=== PATIENT | female | born 1965 | race Two or more races ===

== ENCOUNTER 2020-12-21 17:01 | Emergency (ER) | payer MEDICAID ==
--- NOTE | 2020-12-21 17:21 | EDM.PDOC ---
ED HPI GENERAL MEDICAL PROBLEM - General Stated Complaint: POSSIBLE UTI Time Seen by Provider: 12/21/20 17:03 Source of Information: Reports: Patient History Limitations: Reports: No Limitations - History of Present Illness INITIAL COMMENTS - FREE TEXT/NARRATIVE: History of present illness: Patient is a 55-year-old female who presents to the emergency room with complaints of dysuria and frequency over the past 2 to 3 days. Patient states she had been taking Azo at the onset of her symptoms as she assumed she had a urinary tract infection. She stopped taking the Azo today so she can give us a urine sample. She reports since stopping the Azo the dysuria is "terrible". Reports frequent UTIs. Patient denies any fever, chills, headache, change in vision, syncope or near syncope. Denies any chest pain, back pain, shortness of breath or cough. Denies any abdominal pain, nausea, vomiting, diarrhea, constipation or concerns for STDs or . Patient has been eating and drinking appropriately. Review of systems: As per history of present illness and below otherwise all systems reviewed and negative. Past medical history: As per history of present illness and as reviewed below otherwise noncontributory. Surgical history: As per history of present illness and as reviewed below otherwise noncontributory. Social history: See social history for further information Family history: As per history of present illness and as reviewed below otherwise noncontributory. Physical exam: General: Well developed and well nourished. Alert and orientated x 3. Nontoxic in appearance and in no acute distress. Vital signs are stable and have been reviewed by me. Nursing notes were reviewed. HEENT: Atraumatic, normocephalic, pupils equal and reactive bilaterally, negative for conjunctival pallor or scleral icterus, mucous membranes moist, trachea midline. No drooling or trismus noted. No meningeal signs. No hot potato voice noted. Lungs: Clear to auscultation bilaterally. No wheezes, rales, or rhonchi. Chest nontender. Normal work of breathing, no accessory muscles used. Heart: S1S2, regular rate and rhythm without overt murmur, gallops, or rubs. No JVD. No peripheral edema Abdomen: Soft, nondistended, nontender. Normoactive bowel sounds. Negative for masses or costovertebral tenderness. Skin: Intact, warm, dry. No lesions or rashes noted. Hematologic: No petechiae or purpra. Mucosa appropriate color and normal nail bed color and refill. Extremities: Atraumatic, moves all extremities per self without difficulty or deficits, negative for cords or calf pain. Neurovascular unremarkable. Neuro: Awake, alert, oriented. Cranial nerves II through XII unremarkable. Cerebellum unremarkable. Motor and sensory unremarkable throughout. Exam nonfocal. Psychiatric: Mood and affect are appropriate. Normal thought process. Answering questions appropriately. Notes: *This patient was seen and evaluated during the 2019 SARS-CoV-2 novel coronavirus pandemic period. Community viral transmission is ongoing at time of this encounter and the emergency department is operating under pandemic response procedures. Patient has a significant UTI without abdominal pain, flank pain, n/v, or fever. I have talked with the patient about today's findings, in addition to providing specific details for plan of care. We discussed the need for close follow up. Reassessment at the time of disposition demonstrates that the patient is in no acute distress. The patient is stable for discharge, counseling was provided and we discussed in great detail signs and symptoms that would prompt them to return to the Emergency Department. Medication, follow up and supportive care measures were reviewed and discussed. Voices understanding and is agreeable to plan of care. Denies any further questions or concerns at this time. Diagnostics: UA/UC Therapeutics: Rocephin, Toradol, Pyridium Prescription: Pyridium, Cipro Impression: UTI Plan: 1. You have a significant bladder infection. Please take the antibiotic as directed. If your symptoms should worsen, new symptoms develop or any of the signs and symptoms we discussed should arise please return to the emergency room or call 911 (if needed). 2. You can alternate Tylenol and ibuprofen as needed for pain and fever management. 3. We encourage you to follow up with your primary care provider and/or recommended specialist in the next few days for re-evaluation and further care/management. Definitive disposition and diagnosis as appropriate pending reevaluation and review of above. Urination Pain Score (Numeric/FACES): 10 - Related Data Allergies Allergy/AdvReac Type Severity Reaction Status Date / Time acetaminophen [From Vicodin] Allergy Severe Tremors Verified 12/21/20 17:14 hydrocodone bitartrate Allergy Severe Tremors Verified 12/21/20 17:14 [From Vicodin] prochlorperazine edisylate Allergy Severe Tremors Verified 12/21/20 17:14 [From Compazine] prochlorperazine maleate Allergy Severe Tremors Verified 12/21/20 17:14 [From Compazine] Home Meds: Home Meds Albuterol Sulfate 2 inh INH ASDIRECTED PRN 07/19/14 [History] SUMAtriptan succinate [Sumatriptan Succinate] 1 injection INJECT ASDIRECTED PRN 07/19/14 [History] Ciprofloxacin HCl [Cipro] 500 mg PO BID 7 Days #14 tablet 12/21/20 [Rx] Phenazopyridine HCl [Pyridium] 200 mg PO TID 2 Days #12 tablet 12/21/20 [Rx] Past Medical History Respiratory History: Reports: Asthma Other Genitourinary History: left breast cyst removal on L; two c-sections; tubal ligation Musculoskeletal History: Reports: Neck Pain, Chronic ED ROS GENERAL - Review of Systems Review Of Systems: Comprehensive ROS is negative, except as noted in HPI. ED EXAM, RENAL/ - Physical Exam Exam: See Below (See dictation) Course - Vital Signs Last Recorded V/S: Last Vital Signs Temp 96.9 F 12/21/20 17:04 Pulse 75 12/21/20 17:04 Resp 18 12/21/20 17:04 BP 128/80 12/21/20 17:04 Pulse Ox 98 12/21/20 17:04 - Orders/Labs/Meds Orders: Active Orders 24 hr Category Date Time Status CULTURE URINE [RM] Stat Lab 12/21/20 17:14 Received Labs: Laboratory Tests 12/21/20 Range/Units 17:14 Urine Color YELLOW Urine Appearance SLT CLOUDY Urine pH 6.0 (5.0-8.0) Ur Specific [place] >= 1.030 (1.001-1.035) Urine Protein TRACE H (NEGATIVE) mg/dL Urine Glucose (UA) NEGATIVE (NEGATIVE) mg/dL Urine Ketones NEGATIVE (NEGATIVE) mg/dL Urine Occult Blood LARGE H (NEGATIVE) Urine Nitrite NEGATIVE (NEGATIVE) Urine Bilirubin NEGATIVE (NEGATIVE) Urine Urobilinogen 0.2 (<2.0) EU/dL Ur Leukocyte Esterase SMALL H (NEGATIVE) Urine RBC 25-30 (0-2/HPF) Urine WBC 180-230 (0-5/HPF) Ur Epithelial Cells FEW (NONE-FEW) Amorphous Sediment FEW (NEGATIVE) Urine Bacteria 1+ H (NEGATIVE) Urine Mucus FEW (NONE-MOD) Meds: Medications Discontinued Medications Generic Name Dose Route Start Last Admin Trade Name Kyrie PRN Reason Stop Dose Admin Ceftriaxone Sodium 1 gm 12/21/20 17:39 Rocephin IM 12/21/20 17:40 ONETIME ONE Ketorolac Tromethamine 60 mg 12/21/20 17:41 Toradol IM 12/21/20 17:42 ONETIME ONE Phenazopyridine HCl 200 mg 12/21/20 17:23 12/21/20 17:27 Pyridium PO 12/21/20 17:24 200 mg ONETIME ONE Administration Departure - Departure Time of Disposition: 17:50 Disposition: Home, Self-Care 01 Clinical Impression: UTI, Urinary tract infectious disease - Discharge Information Prescriptions: Ciprofloxacin HCl [Cipro] 500 mg PO BID 7 Days #14 tablet Phenazopyridine HCl [Pyridium] 200 mg PO TID 2 Days #12 tablet Instructions: Urinary Tract Infection, Adult Referrals: Susan Ayon MD [Primary Care Provider] - Additional Instructions: The following information is given to patients seen in the emergency department who are being discharged to home. This information is to outline your options for follow-up care. We provide all patients seen in our emergency department with a follow-up referral. The need for follow-up, as well as the timing and circumstances, are variable depending upon the specifics of your emergency department visit. If you don't have a primary care physician on staff, we will provide you with a referral. We always advise you to contact your personal physician following an emergency department visit to inform them of the circumstance of the visit and for follow-up with them and/or the need for any referrals to a consulting specialist. The emergency department will also refer you to a specialist when appropriate. This referral assures that you have the opportunity for follow-up care with a specialist. All of these measure are taken in an effort to provide you with optimal care, which includes your follow-up. Under all circumstances we always encourage you to contact your private physician who remains a resource for coordinating your care. When calling for follow-up care, please make the office aware that this follow-up is from your recent emergency room visit. If for any reason you are refused follow-up, please contact the [facility] Emergency Department at and asked to speak to the emergency department charge nurse. [facility] [address] [place] [address] [facility] [address] [place] [address] Thank you for choosing the [facility] emergency department in [place] for your medical needs today. It was a pleasure caring for you. Today you were seen in the emergency department for UTI. 1. You have a significant bladder infection. Please take the antibiotic as directed. If your symptoms should worsen, new symptoms develop or any of the signs and symptoms we discussed should arise please return to the emergency room or call 911 (if needed). 2. You can alternate Tylenol and ibuprofen as needed for pain and fever m anagement. 3. We encourage you to follow up with your primary care provider and/or recommended specialist in the next few days for re-evaluation and further care/management. Sepsis Event Note (ED) - Focused Exam Vital Signs: Vital Signs Temp Pulse Resp BP Pulse Ox 12/21/20 17:04 96.9 F 75 18 128/80 98 - My Orders Last 24 Hours: My Active Orders 12/21/20 17:14 CULTURE URINE [RM] Stat - Assessment/Plan Last 24 Hours: My Active Orders 12/21/20 17:14 CULTURE URINE [RM] Stat
[2020-12-21] MEDS ORDERED: Phenazopyridine 200 MG Tab PO ONE (17:23)
[2020-12-21] MEDS ORDERED: cefTRIAXone 1 GM Vial IM ONE (17:39)
[2020-12-21] MEDS ORDERED: Ketorolac 60 MG/2 ML SDV IM ONE (17:41)
== END 2020-12-21 18:42 | disposition home or self-care (01) ==
LOC: MW.ED 17:01
DX: N39.0 Urinary tract infection, site not specified (principal); J45.909 Unspecified asthma, uncomplicated; Z88.6 Allergy status to analgesic agent; Z88.5 Allergy status to narcotic agent; Z88.8 Allergy status to other drugs, medicaments and biological substances
CPT/HCPCS: 81001; 87086; 87088; 87186; 96372; 99283; A9270; J0696; J1885

== ENCOUNTER 2021-04-08 18:07 | Emergency (ER) | payer MEDICAID ==
[2021-04-08 19:10] LABS: BLOOD UREA NITROGEN,BUN 21 mg/dL (7.0-18.0); CARBON DIOXIDE,CO2 26.1 mmol/L (21.0-32.0); CHLORIDE,CL 104 mmol/L (98-107); GLUCOSE RANDOM 110 mg/dL (74-106); POTASSIUM,K 3.9 mmol/L (3.5-5.1); SODIUM,NA 140 mmol/L (136-145)
--- NOTE | 2021-04-08 19:57 | US ---
INDICATION: RIGHT LOWER EXT PAIN, INTERMITTENT PARASETHESIA TECHNIQUE: Ultrasound venous duplex right lower extremity. COMPARISON: None. FINDINGS: The right common femoral, superficial femoral, deep femoral, popliteal, posterior tibial, and greater saphenous veins are fully compressible with normal waveforms. IMPRESSION: Normal ultrasound of the right lower extremity veins. Dictated by: Star Vitale MD @ 04/08/2021 19:56:33 (Electronically Signed)
--- NOTE | 2021-04-08 20:14 | CT ---
INDICATION: Right leg pain. TECHNIQUE: Axial images. Sagittal and coronal reconstructions. COMPARISON: None. FINDINGS: Normal curvature and alignment of the lumbar spine. No lumbar spine fracture. There is mild multilevel disc degeneration as indicated by circumferential disc bulging with mild disc space narrowing and endplate degenerative spurring. There is mild to moderate multilevel facet arthrosis. A combination of disc bulge, and ligamentum flavum and facet hypertrophy at L4-5 results in at least mild spinal stenosis at this level. These changes also result in mild to moderate bilateral neural foraminal narrowing at this level, right worse than left. Eccentric degenerative changes on the left at L5-S1 result in moderate to severe neural foraminal stenosis at this level. IMPRESSION: 1. No acute bony abnormality involving the lumbar spine. 2. Lumbar spondylosis as described above, with at least mild spinal stenosis at L4-5, as well as the neural foraminal narrowing at L4-5, right greater than left, and left-sided neural foraminal stenosis at L5-S1. Dictated by Jeremiah Mensah MD @ 04/08/2021 8:12:15 PM Please note that all CT scans at this facility use dose modulation, iterative reconstruction, and/or weight-based dosing when appropriate to reduce radiation dose to as low as reasonably achievable. Dictated by: Jeremiah Mensah MD @ 04/08/2021 20:12:27 (Electronically Signed)
--- NOTE | 2021-04-08 20:17 | EDM.PDOC ---
ED HPI GENERAL MEDICAL PROBLEM - General Chief Complaint: Lower Extremity Injury/Pain Stated Complaint: RIGHT LEG NUMBNESS Time Seen by Provider: 04/08/21 18:32 Source of Information: Reports: Patient History Limitations: Reports: No Limitations - History of Present Illness INITIAL COMMENTS - FREE TEXT/NARRATIVE: HISTORY AND PHYSICAL: History of present illness: Patient is a 56-year-old female who presents to the emergency room with complaints of right lower extremity pain. She states last week she had drove [address] and quickly had to return 16 hours back. Shortly after she started to develop some pain to the right posterior thigh that occasionally radiated into the calf. She now has pain mostly in the right calf with intermittent tingling/numbness sensation. She has a history of PE and is concerned she has a blood clot. Patient denies any fever, chills, headache, change in vision, syncope or near syncope. Denies any chest pain, shortness of breath or cough. Denies any abdominal pain, nausea, vomiting, diarrhea, constipation or dysuria. Has not noted any blood in urine or stool. Patient has been eating and drinking appropriately. Denies any injury, trauma or falls. Review of systems: As per history of present illness and below otherwise all systems reviewed and negative. Past medical history: As per history of present illness and as reviewed below otherwise noncontributory. Surgical history: As per history of present illness and as reviewed below otherwise noncontributory. Social history: See social history for further information Family history: As per history of present illness and as reviewed below otherwise noncontributory. Physical exam: General: Well developed and well nourished. Alert and orientated x 3. Nontoxic in appearance and in no acute distress. Vital signs are stable and have been reviewed by me. Nursing notes were reviewed. HEENT: Atraumatic, normocephalic, pupils equal and reactive bilaterally, negative for conjunctival pallor or scleral icterus, mucous membranes moist, TMs normal bilaterally, throat clear, neck supple, nontender, trachea midline. No drooling or trismus noted. No meningeal signs. No hot potato voice noted. Lungs: Clear to auscultation bilaterally. No wheezes, rales, or rhonchi. Chest nontender. Normal work of breathing, no accessory muscles used. Heart: S1S2, regular rate and rhythm without overt murmur, gallops, or rubs. No JVD. No peripheral edema Abdomen: Soft, nondistended, nontender. Normoactive bowel sounds. Negative for masses or costovertebral tenderness. Pelvis: Stable nontender. Genitourinary/Rectal: Deferred. C-spine/Back: No pinpoint vertebral tenderness upon palpation. No crepitus, step-offs or obvious deformities. Patient is ambulatory into the emergency room without difficulty or deficit. Able to rock back on heels and walk on toes. Denies any urinary or fecal incontinence. Denies any numbness, tingling or saddle paresthesia. No concerns of serious infection, fracture or cord compression, or cauda equina syndrome. Deep tendon reflexes brisk bilaterally. Skin: Intact, warm, dry. No lesions or rashes noted. Hematologic: No petechiae or purpra. Mucosa appropriate color and normal nail bed color and refill. Extremities: Atraumatic, moves all extremities per self without difficulty or deficits, negative for cords or calf pain. Neurovascular unremarkable. Neuro: Awake, alert, oriented. Cranial nerves II through XII unremarkable. Cerebellum unremarkable. Motor and sensory unremarkable throughout. Exam nonfocal. Psychiatric: Mood and affect are appropriate. Normal thought process. Answering questions appropriately. Notes: *This patient was seen and evaluated during the 2019 SARS-CoV-2 novel coronavirus pandemic period. Community viral transmission is ongoing at time of this encounter and the emergency department is operating under pandemic response procedures. Patient's physical exam is within normal limits. The skin is intact and c omparable of left and right. She currently denies any back pain although states she did have some low back pain after the long car ride. C-spine/back exam is unremarkable. No neurological symptoms are noted. Strong pedal and pretibial pulses bilaterally. I will do some imaging per patient request.. Lab work is within normal limits. Ultrasound is unremarkable, no evidence of DVT. CT of the lumbar spine shows no acute bony abnormality involving the lumbar spine. Lumbar spondylosis as described above, with at least mild spinal stenosis at L4-5, as well as the neural foraminal narrowing at L4-5, right greater than left, and left-sided neural foraminal stenosis at L5-S1. I have talked with the patient about today's findings, in addition to providing specific details for plan of care. Reassessment at the time of disposition demonstrates that the patient is in no acute distress. The patient is stable for discharge, counseling was provided and we discussed in great detail signs and symptoms that would prompt them to return to the Emergency Department. Strict return precautions were reviewed and discussed. She is aware if symptoms persist after steroids that she should follow-up with primary care as she may require an MRI. Medication, follow up and supportive care measures were reviewed and discussed. Voices understanding and is agreeable to plan of care. Denies any further questions or concerns at this time. Diagnostics: CBC, CMP, INR, Ultrasound, CT lumbar spine Therapeutics: Flexeril Prescription: Diclofenac, Flexeril, Prednisone Impression: Sciatica Plan: 1. You were evaluated today on an emergent basis. Your lab work, ultrasound and CT are within normal limits. You do have some mild spinal stenosis noted on imaging. If your symptoms should worsen, new symptoms develop (peeing or pooping yourself) or any of the signs and symptoms we discussed should arise please return to the emergency room or call 911 (if needed). You may require an MRI if symptoms do not resolve as we discussed. 2. You can alternate Tylenol and ibuprofen as needed for pain and fever management. 3. We encourage you to follow up with your primary care provider and/or recommended specialist in the next few days for re-evaluation and further care/management. Definitive disposition and diagnosis as appropriate pending reevaluation and review of above. right leg Pain Score (Numeric/FACES): 4 - Related Data Allergies Allergy/AdvReac Type Severity Reaction Status Date / Time acetaminophen [From Vicodin] Allergy Severe Tremors Verified 04/08/21 18:26 hydrocodone bitartrate Allergy Severe Tremors Verified 04/08/21 18:26 [From Vicodin] prochlorperazine edisylate Allergy Severe Tremors Verified 04/08/21 18:26 [From Compazine] prochlorperazine maleate Allergy Severe Tremors Verified 04/08/21 18:26 [From Compazine] Home Meds: Home Meds Albuterol Sulfate 2 inh INH ASDIRECTED PRN 07/19/14 [History] Cyclobenzaprine [Flexeril] 10 mg PO TID PRN #21 tab 04/08/21 [Rx] Diclofenac Sodium [Voltaren] 75 mg PO BIDMEALS PRN #30 tab.cr 04/08/21 [Rx] predniSONE [Prednisone] 40 mg PO DAILY 5 Days #10 tablet 04/08/21 [Rx] Past Medical History HEENT History: Reports: None Cardiovascular History: Reports: None Respiratory History: Reports: Asthma Other Respiratory History: hx of PE Gastrointestinal History: Reports: None Genitourinary History: Reports: UTI, Recurrent Other Genitourinary History: left breast cyst removal on L; two c-sections; 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: Musculoskeletal History: Reports: Neck Pain, Chronic Neurological History: Reports: Migraines Psychiatric History: Reports: None Endocrine/Metabolic History: Reports: None Hematologic History: Reports: None Immunologic History: Reports: None Oncologic (Cancer) History: Reports: None Dermatologic History: Reports: None - Infectious Disease History Infectious Disease History: Reports: None - Past Surgical History Head Surgeries/Procedures: Reports: None Social & Family History - Family History Family Medical History: No Pertinent Family History - Tobacco Use Tobacco Use Status *Q: Never Tobacco User - Caffeine Use Caffeine Use: Reports: Coffee - Recreational Drug Use Recreational Drug Use: No Review of Systems - Review of Systems Review Of Systems: Comprehensive ROS is negative, except as noted in HPI. ED EXAM, GENERAL - Physical Exam Exam: See Below (See dictation) Course - Vital Signs Last Recorded V/S: Last Vital Signs Temp 97.6 F 04/08/21 18:21 Pulse 82 04/08/21 18:21 Resp 20 04/08/21 18:21 BP 144/78 H 04/08/21 18:21 Pulse Ox 96 04/08/21 18:21 - Orders/Labs/Meds Labs: Laboratory Tests 04/08/21 04/08/21 04/08/21 Range/Units 18:45 18:45 18:45 WBC 6.44 (4.0-11.0) K/uL RBC 3.99 L (4.30-5.90) M/uL Hgb 12.7 (12.0-16.0) g/dL Hct 38.2 (36.0-46.0) % MCV 95.7 (80.0-98.0) fL MCH 31.8 (27.0-32.0) pg MCHC 33.2 (31.0-37.0) g/dL RDW Std Deviation 45.3 (28.0-62.0) fl RDW Coeff of Alessia 13 (11.0-15.0) % Plt Count 263 (150-400) K/uL MPV 11.50 (7.40-12.00) fL Neut % (Auto) 54.8 (48.0-80.0) % Lymph % (Auto) 34.3 (16.0-40.0) % [place] % (Auto) 7.0 (0.0-15.0) % Eos % (Auto) 3.3 (0.0-7.0) % Baso % (Auto) 0.6 (0.0-1.5) % Neut # (Auto) 3.5 (1.4-5.7) K/uL Lymph # (Auto) 2.2 (0.6-2.4) K/uL [place] # (Auto) 0.5 (0.0-0.8) K/uL Eos # (Auto) 0.2 (0.0-0.7) K/uL Baso # (Auto) 0.0 (0.0-0.1) K/uL Nucleated RBC % 0.0 /100WBC Nucleated RBCs # 0 K/uL INR 0.97 Sodium 140 (136-145) mmol/L Potassium 3.9 (3.5-5.1) mmol/L Chloride 104 (98-107) mmol/L Carbon Dioxide 26.1 (21.0-32.0) mmol/L BUN 21 H (7.0-18.0) mg/dL Creatinine 0.7 (0.6-1.0) mg/dL Est Cr Clr Drug Dosing 64.46 mL/min Estimated GFR (MDRD) > 60.0 ml/min Glucose 110 H (74-106) mg/dL Calcium 8.2 L (8.5-10.1) mg/dL Total Bilirubin 0.2 (0.2-1.0) mg/dL AST 26 (15-37) IU/L ALT 49 (14-63) IU/L Alkaline Phosphatase 107 (46-116) U/L Total Protein 7.1 (6.4-8.2) g/dL Albumin 3.6 (3.4-5.0) g/dL Globulin 3.5 (2.6-4.0) g/dL Albumin/Globulin Ratio 1.0 (0.9-1.6) Meds: Medications Discontinued Medications Generic Name Dose Route Start Last Admin Trade Name Freq PRN Reason Stop Dose Admin Cyclobenzaprine HCl 10 mg 04/08/21 20:21 04/08/21 20:30 Cyclobenzaprine 10 Mg Tab PO 04/08/21 20:22 10 mg ONETIME ONE Administration Departure - Departure Time of Disposition: 20:33 Disposition: Home, Self-Care 01 Clinical Impression: Sciatica Qualifiers: Laterality: right Qualified Code(s): M54.31 - Sciatica, right side - Discharge Information Prescriptions: Cyclobenzaprine [Flexeril] 10 mg PO TID PRN #21 tab PRN Reason: Muscle Spasm predniSONE [Prednisone] 40 mg PO DAILY 5 Days #10 tablet Diclofenac Sodium [Voltaren] 75 mg PO BIDMEALS PRN #30 tab.cr PRN Reason: Pain Instructions: Sciatica, [id number] Referrals: Susan Ayon MD [Primary Care Provider] - Forms: ED Department Discharge Additional Instructions: The following information is given to patients seen in the emergency department who are being discharged to home. This information is to outline your options for follow-up care. We provide all patients seen in our emergency department with a follow-up referral. The need for follow-up, as well as the timing and circumstances, are variable depending upon the specifics of your emergency department visit. If you don't have a primary care physician on staff, we will provide you with a referral. We always advise you to contact your personal physician following an emergency department visit to inform them of the circumstance of the visit and for follow-up with them and/or the need for any referrals to a consulting specialist. The emergency department will also refer you to a specialist when appropriate. This referral assures that you have the opportunity for follow-up care with a specialist. All of these measure are taken in an effort to provide you with optimal care, which includes your follow-up. Under all circumstances we always encourage you to contact your private physician who remains a resource for coordinating your care. When calling for follow-up care, please make the office aware that this follow-up is from your recent emergency room visit. If for any reason you are refused follow-up, please contact the [facility] Emergency Department at and asked to speak to the emergency department charge nurse. [facility] [address] [place] [address] [facility] [address] [place] [address] Thank you for choosing the [facility] emergency department in [place] for your medical needs today. It was a pleasure caring for you. Today you were seen in the emergency department for leg pain and paraesthesia. 1. You were evaluated today on an emergent basis. Your lab work, ultrasound and CT are within normal limits. You do have some mild spinal stenosis noted on imaging. If your symptoms should worsen, new symptoms develop (peeing or pooping yourself) or any of the signs and symptoms we discussed should arise please return to the emergency room or call 911 (if needed). You may require an MRI if symptoms do not resolve as we discussed. 2. You can alternate Tylenol and ibuprofen as needed for pain and fever management. 3. We encourage you to follow up with your primary care provider and/or recommended specialist in the next few days for re-evaluation and further care/management. Sepsis Event Note (ED) - Evaluation Sepsis Screening Result: No Definite Risk - Focused Exam Vital Signs: Vital Signs Temp Pulse Resp BP Pulse Ox 04/08/21 18:21 97.6 F 82 20 144/78 H 96
[2021-04-08] MEDS ORDERED: Cyclobenzaprine 10 MG Tab PO ONE (20:21)
== END 2021-04-08 20:53 | disposition home or self-care (01) ==
LOC: MW.ED 18:07
DX: M54.41 Lumbago with sciatica, right side (principal); Z88.5 Allergy status to narcotic agent; Z88.8 Allergy status to other drugs, medicaments and biological substances
CPT/HCPCS: 36415; 72131; 80053; 85025; 85610; 93971; 99284; A9270; 99283

== ENCOUNTER 2021-07-22 14:41 | Emergency (ER) | payer MEDICAID ==
--- NOTE | 2021-07-22 16:03 | EDM.PDOC ---
ED HPI GENERAL MEDICAL PROBLEM - General Chief Complaint: Genitourinary Problem Stated Complaint: UTI Time Seen by Provider: 07/22/21 15:10 Source of Information: Reports: Patient History Limitations: Reports: No Limitations - History of Present Illness INITIAL COMMENTS - FREE TEXT/NARRATIVE: HISTORY AND PHYSICAL: History of present illness: Patient is a 56-year-old female who presents emergency room today with concern of burning with urination and urinary frequency x3 days. Patient states that she has been taking [id number] Azo which has been helping with her sympto ms. Patient states that she has had frequent urinary tract infections in the past and this feels typical of her usual urinary tract infection. Patient denies any other symptoms or concerns. Patient denies fever, chills, chest pain, shortness of breath, or cough. Denies headache, neck stiff ness, change in vision, syncope, or near syncope. Denies nausea, vomiting, abdominal pain, diarrhea, constipation, or dysuria. Has not noted any blood in urine or stool. Patient has been eating and drinking appropriately. Review of systems: As per history of present illness and below otherwise all systems reviewed and negative. Past medical history: As per history of present illness and as reviewed below otherwise noncontributory. Surgical history: As per history of present illness and as reviewed below otherwise noncontributory. Social history: See social history for further information Family history: As per history of present illness and as reviewed below otherwise noncontributory. Physical exam: General: Patient is alert, oriented, and in no acute distress. Patient sitting comfortably on exam table. Vitals stable and reviewed by me. HEENT: Atraumatic, normocephalic, pupils equal and reactive bilaterally, negative for conjunctival pallor or scleral icterus, mucous membranes moist, throat clear, neck supple, nontender, trachea midline. No drooling or trismus noted. No meningeal signs. No hot potato voice noted. Lungs: Clear to auscultation, breath sounds equal bilaterally, chest nontender. Heart: S1S2, regular rate and rhythm without overt murmur Abdomen: Soft, nondistended, nontender. Negative for masses or hepatosplenomegaly. Negative for costovertebral tenderness. Pelvis: Stable nontender. Genitourinary: Deferred. Rectal: Deferred. Skin: Intact, warm, dry. No lesions or rashes noted. Extremities: Atraumatic, negative for cords or calf pain. Neurovascular unremarkable. Neuro: Awake, alert, oriented. Cranial nerves II through XII unremarkable. Cerebellum unremarkable. Motor and sensory unremarkable throughout. Exam nonfocal. Notes: Signs and symptoms that were prompt return to the ED thoroughly discussed with patient. Discussed importance for follow-up with a primary care provider. Voices understanding and is agreeable to plan of care. Denies any further questions or concerns at this time. Diagnostics: UA with culture Therapeutics: None Prescription: Keflex Impression: Urinary tract infection Plan: 1. Take medication as prescribed. You can also alternate ibuprofen and Tylenol as checked for pain and discomfort. 2. Follow-up with a primary care provider as discussed. Return to the ED as needed and as discussed. Definitive disposition and diagnosis as appropriate pending reevaluation and review of above. Bladder Pain Score (Numeric/FACES): 8 - Related Data Allergies Allergy/AdvReac Type Severity Reaction Status Date / Time acetaminophen [From Vicodin] Allergy Severe Tremors Verified 04/08/21 18:26 hydrocodone bitartrate Allergy Severe Tremors Verified 04/08/21 18:26 [From Vicodin] prochlorperazine edisylate Allergy Severe Tremors Verified 04/08/21 18:26 [From Compazine] prochlorperazine maleate Allergy Severe Tremors Verified 04/08/21 18:26 [From Compazine] Home Meds: Home Meds Albuterol Sulfate 2 inh INH ASDIRECTED PRN 07/19/14 [History] Cyclobenzaprine [Flexeril] 10 mg PO TID PRN #21 tab 04/08/21 [Rx] Diclofenac Sodium [Voltaren] 75 mg PO BIDMEALS PRN #30 tab.cr 04/08/21 [Rx] predniSONE [Prednisone] 40 mg PO DAILY 5 Days #10 tablet 04/08/21 [Rx] Past Medical History HEENT History: Reports: None Cardiovascular History: Reports: None Respiratory History: Reports: Asthma Other Respiratory History: hx of PE Gastrointestinal History: Reports: None Genitourinary History: Reports: UTI, Recurrent Other Genitourinary History: left breast cyst removal on L; two c-sections; 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: Musculoskeletal History: Reports: Neck Pain, Chronic Neurological History: Reports: Migraines Psychiatric History: Reports: None Endocrine/Metabolic History: Reports: None Hematologic History: Reports: None Immunologic History: Reports: None Oncologic (Cancer) History: Reports: None Dermatologic History: Reports: None - Infectious Disease History Infectious Disease History: Reports: None - Past Surgical History Head Surgeries/Procedures: Reports: None Social & Family History - Family History Family Medical History: No Pertinent Family History - Tobacco Use Tobacco Use Status *Q: Never Tobacco User - Caffeine Use Caffeine Use: Reports: None - Recreational Drug Use Recreational Drug Use: No ED ROS GENERAL - Review of Systems Review Of Systems: Comprehensive ROS is negative, except as noted in HPI. ED EXAM, GENERAL - Physical Exam Exam: See Below (see dictation) Course - Vital Signs Last Recorded V/S: Last Vital Signs Temp 98.2 F 07/22/21 16:22 Pulse 72 07/22/21 15:13 Resp 18 07/22/21 16:22 BP 131/74 07/22/21 16:22 Pulse Ox 98 07/22/21 16:22 - Orders/Labs/Meds Labs: Laboratory Tests 07/22/21 07/22/21 Range/Units 15:22 15:55 POC Glucose 91 (70-99) mg/dL Urine Color ORANGE Urine Appearance SLT CLOUDY Urine pH 5.5 (5.0-8.0) Ur Specific [place] 1.025 (1.001-1.035) Urine Protein TRACE H (NEGATIVE) mg/dL Urine Glucose (UA) 100 H (NEGATIVE) mg/dL Urine Ketones NEGATIVE (NEGATIVE) mg/dL Urine Occult Blood SMALL H (NEGATIVE) Urine Nitrite POSITIVE H (NEGATIVE) Urine Bilirubin NEGATIVE (NEGATIVE) Urine Urobilinogen 2.0 H (<2.0) EU/dL Ur Leukocyte Esterase SMALL H (NEGATIVE) Urine RBC 2-4 (0-2/HPF) Urine WBC 5-10 (0-5/HPF) Ur Epithelial Cells FEW (NONE-FEW) Urine Bacteria FEW (NEGATIVE) Departure - Departure Time of Disposition: 16:02 Disposition: Home, Self-Care 01 Clinical Impression: Urinary tract infection Qualifiers: Urinary tract infection type: acute cystitis Hematuria presence: with hematuria Qualified Code(s): N30.01 - Acute cystitis with hematuria - Discharge Information Instructions: Urinary Tract Infection, Adult, [id number] Referrals: Susan Ayon MD [Primary Care Provider] - Forms: ED Department Discharge Additional Instructions: The following information is given to patients seen in the emergency department who are being discharged to home. This information is to outline your options for follow-up care. We provide all patients seen in our emergency department with a follow-up referral. The need for follow-up, as well as the timing and circumstances, are variable depending upon the specifics of your emergency department visit. If you don't have a primary care physician on staff, we will provide you with a referral. We always advise you to contact your personal physician following an emergency department visit to inform them of the circumstance of the visit and for follow-up with them and/or the need for any referrals to a consulting specialist. The emergency department will also refer you to a specialist when appropriate. This referral assures that you have the opportunity for follow-up care with a specialist. All of these measure are taken in an effort to provide you with optimal care, which includes your follow-up. Under all circumstances we always encourage you to contact your private physician who remains a resource for coordinating your care. When calling for follow-up care, please make the office aware that this follow-up is from your recent emergency room visit. If for any reason you are refused follow-up, please contact the [facility] Emergency Department at and asked to speak to the emergency department charge nurse. [facility] [address] [place] [address] [place] [address] 1. Take medication as prescribed. You can also alternate ibuprofen and Tylenol as directed for pain and discomfort. 2. Follow-up with a primary care provider as discussed. Return to the ED as needed and as discussed. Sepsis Event Note (ED) - Focused Exam Vital Signs: Vital Signs Temp Pulse Resp BP Pulse Ox 07/22/21 16:22 98.2 F 18 131/74 98 07/22/21 15:13 97.7 F 72 18 134/78 97
== END 2021-07-22 16:23 | disposition home or self-care (01) ==
LOC: MW.ED 14:41
DX: N30.01 Acute cystitis with hematuria (principal); Z88.5 Allergy status to narcotic agent; Z88.8 Allergy status to other drugs, medicaments and biological substances
CPT/HCPCS: 81001; 82947; 99283

== ENCOUNTER 2021-12-21 12:19 | Emergency (ER) | payer BC, MEDICAID | END 2021-12-21 13:45 | disposition home or self-care (01) | LOC: MW.ED 12:19 | DX: N30.01 Acute cystitis with hematuria (principal); Z88.8 Allergy status to other drugs, medicaments and biological substances; Z88.5 Allergy status to narcotic agent | CPT/HCPCS: 81001; 99283 ==

== ENCOUNTER 2022-01-07 16:22 | Emergency (ER) | payer MEDICAID ==
[2022-01-07] MEDS ORDERED: Sodium Chloride 0.9% 1,000 ML IV ONE (16:27)
[2022-01-07] MEDS ORDERED: diphenhydrAMINE 50 MG/ML SDV IVPUSH ONE (16:27)
[2022-01-07] MEDS ORDERED: Famotidine 20 MG/2 ML SDV IVPUSH ONE (16:27)
[2022-01-07] MEDS ORDERED: methylPREDNISolone Sodium Succinate 125 MG/2 ML SDV IVPUSH ONE (16:27)
[2022-01-07] MEDS ORDERED: Sodium Chloride 0.9% 2.5 ML Syringe FLUSH PRN (16:27)
[2022-01-07] MEDS ORDERED: Sodium Chloride 0.9% 10 ML Syringe FLUSH PRN (16:27)
[2022-01-07 17:30] LABS: CORONAVIRUS COVID-19 NAA NEGATIVE (NEGATIVE); INFLUENZA A NAA NEGATIVE (NEGATIVE); INFLUENZA B NAA NEGATIVE (NEGATIVE)
[2022-01-07 17:38] LABS: BLOOD UREA NITROGEN,BUN 18 mg/dL (7.0-18.0); CARBON DIOXIDE,CO2 24.3 mmol/L (21.0-32.0); CHLORIDE,CL 105 mmol/L (98-107); GLUCOSE RANDOM 101 mg/dL (74-106); POTASSIUM,K 3.9 mmol/L (3.5-5.1); SODIUM,NA 143 mmol/L (136-145)
== END 2022-01-07 18:34 | disposition home or self-care (01) ==
LOC: MW.ED 16:22
DX: T78.1XXA Other adverse food reactions, not elsewhere classified, initial encounter (principal); Z91.010 Allergy to peanuts; Z88.5 Allergy status to narcotic agent; Z88.8 Allergy status to other drugs, medicaments and biological substances; Z20.822 Contact with and (suspected) exposure to COVID-19
CPT/HCPCS: 0240U; 36415; 71045; 80053; 85025; 93005; 96374; 96375; 99284; J1200; J2930; J3490; J7030

== ENCOUNTER 2022-02-19 08:07 | Emergency (ER) | payer MEDICAID ==
[2022-02-19] MEDS ORDERED: Ondansetron 4 MG/2 ML SDV IVPUSH ONE (08:08)
[2022-02-19] MEDS ORDERED: Meclizine 25 MG Tab PO STA (08:08)
[2022-02-19] MEDS ORDERED: LORazepam 2 MG/ML SDV IVPUSH STA (08:08)
[2022-02-19 08:48] LABS: BLOOD UREA NITROGEN,BUN 14 mg/dL (7.0-18.0); CARBON DIOXIDE,CO2 23.1 mmol/L (21.0-32.0); CHLORIDE,CL 103 mmol/L (98-107); GLUCOSE RANDOM 119 mg/dL (74-106); POTASSIUM,K 3.6 mmol/L (3.5-5.1); SODIUM,NA 137 mmol/L (136-145)
[2022-02-19] MEDS ORDERED: Metoclopramide 10 MG/2 ML SDV IVPUSH STA (10:26)
== END 2022-02-19 12:21 | disposition home or self-care (01) ==
LOC: MW.ED 08:07
DX: R42 Dizziness and giddiness (principal); J32.0 Chronic maxillary sinusitis; Z88.5 Allergy status to narcotic agent; Z88.8 Allergy status to other drugs, medicaments and biological substances
CPT/HCPCS: 36415; 70551; 80053; 81001; 83735; 85025; 96374; 96375; 99284; A9270; J2060; J2405; J2765

== ENCOUNTER 2022-06-24 22:44 | Observation (INO) | payer MEDICAID ==
[2022-06-24] MEDS ORDERED: Sodium Chloride 0.9% 1,000 ML IV ONE (23:09)
[2022-06-24] MEDS ORDERED: Ondansetron 4 MG/2 ML SDV IVPUSH ONE (23:09)
[2022-06-24] MEDS ORDERED: Morphine 4 MG/ML VIAL IVPUSH ONE (23:09)
[2022-06-25 00:08] LABS: CARBON DIOXIDE,CO2 28.1 mmol/L (21.0-32.0); POTASSIUM,K 4.5 mmol/L (3.5-5.1)
[2022-06-25] MEDS ORDERED: Sodium Chloride 0.9% 1,000 ML IV ONE ×2 (00:22→11:09)
[2022-06-25] MEDS ORDERED: Ondansetron 4 MG/2 ML SDV IVPUSH ONE (00:25)
[2022-06-25] MEDS ORDERED: Morphine 4 MG/ML VIAL IVPUSH ONE (00:25)
[2022-06-25] MEDS ORDERED: Iopamidol 755 MG/ML 500 ML Multipack Bottle IVPUSH STA (00:55)
[2022-06-25] MEDS ORDERED: Haloperidol Lactate 5 MG/ML SDV IM ONE (00:59)
[2022-06-25] MEDS ORDERED: Magnesium Citrate Solution 296 ML Bottle PO ONE (02:22)
[2022-06-25] MEDS ORDERED: Ondansetron 4 MG/2 ML SDV IVPUSH PRN (03:33)
[2022-06-25] MEDS ORDERED: Morphine 2 MG/ML SYRINGE IVPUSH PRN (03:35)
[2022-06-25] MEDS: Sodium Chloride 0.9% 1,000 ML IV SCH ×3 (04:02→23:57)
[2022-06-25 06:45] LABS: CARBON DIOXIDE,CO2 27.9 mmol/L (21.0-32.0); POTASSIUM,K 4.2 mmol/L (3.5-5.1)
[2022-06-25] MEDS ORDERED: Albuterol/Ipratropium 3.0-0.5 MG/3 ML Neb Soln NEB PRN (07:18)
[2022-06-25] MEDS ORDERED: Sodium Chloride 0.9% 1,000 ML IV SCH (07:30)
[2022-06-25] MEDS ORDERED: Polyethylene Glycol 3350 Powder 17 GM Packet PO PRN (09:00)
[2022-06-25] MEDS: Pantoprazole 40 MG in Sodium Chloride 0.9% 10 ML IVPUSH SCH (09:59)
[2022-06-25] MEDS ORDERED: Scopolamine 1.5 MG Transdermal Patch TOP ONE (11:30)
[2022-06-25 11:40] LABS: HEMOGLOBIN A1C 5.5 %
[2022-06-25] MEDS: Piperacillin/Tazobactam 3.375 GM in Sodium Chloride 0.9% 50 ML IV SCH ×3 (11:40→23:57)
[2022-06-25] MEDS: Metoclopramide 10 MG/2 ML SDV IVPUSH PRN (13:48)
[2022-06-25] MEDS ORDERED: Albuterol 8 GM Inhaler INH PRN (14:00)
[2022-06-25] MEDS: Fluticasone/Salmeterol 250-50 MCG Inhalation Powder 14/Diskus INH SCH (20:27)
[2022-06-26 06:55] LABS: CARBON DIOXIDE,CO2 27.6 mmol/L (21.0-32.0); POTASSIUM,K 3.3 mmol/L (3.5-5.1)
[2022-06-26] MEDS: Sodium Chloride 0.9% 1,000 ML IV SCH (09:07)
[2022-06-26] MEDS ORDERED: Ondansetron 4 MG/2 ML SDV IVPUSH PRN (09:18)
[2022-06-26] MEDS ORDERED: Metoclopramide 10 MG/2 ML SDV IVPUSH PRN (09:18)
[2022-06-26] MEDS ORDERED: Naloxone 0.4 MG/ML SDV IVPUSH PRN (09:18)
[2022-06-26] MEDS ORDERED: fentaNYL 50 MCG/ML SDV IVPUSH PRN (09:18)
[2022-06-26] MEDS ORDERED: HYDROmorphone 1 MG/ML Syringe IVPUSH PRN ×2 (09:18→15:34)
[2022-06-26] MEDS ORDERED: Albuterol 0.083% 2.5 MG/3 ML Neb Soln NEB PRN (09:18)
[2022-06-26] MEDS: Fluticasone/Salmeterol 250-50 MCG Inhalation Powder 14/Diskus INH SCH ×2 (09:50→22:08)
[2022-06-26] MEDS: Pantoprazole 40 MG in Sodium Chloride 0.9% 10 ML IVPUSH SCH (09:50)
[2022-06-26] MEDS: Piperacillin/Tazobactam 3.375 GM in Sodium Chloride 0.9% 50 ML IV SCH ×3 (10:01→16:40)
[2022-06-26] MEDS ORDERED: Bupivacaine 0.5% 30 ML SDV ONE ×2 (11:04→12:51)
[2022-06-26] MEDS ORDERED: Rocuronium Bromide 50 MG/5 ML Syringe ONE (11:48)
[2022-06-26] MEDS ORDERED: Dexamethasone 4 MG/ML 5 ML MDV ONE (11:49)
[2022-06-26] MEDS ORDERED: fentaNYL 250 MCG/5 ML SDV ONE (11:49)
[2022-06-26] MEDS ORDERED: Propofol 200 MG/20 ML SDV ONE (11:49)
[2022-06-26] MEDS ORDERED: Sugammadex Sodium 200 MG/2 ML VIAL ONE ×2 (11:49→11:52)
[2022-06-26] MEDS ORDERED: Ondansetron 4 MG/2 ML SDV ONE (11:49)
[2022-06-26] MEDS ORDERED: Lidocaine 2% 5 ML SDV ONE (11:49)
[2022-06-26] MEDS ORDERED: Midazolam 1 MG/ML 2 ML SDV ONE (11:49)
[2022-06-26] MEDS ORDERED: Ketorolac 30 MG/ML SDV ONE (13:23)
[2022-06-26] MEDS: Metoclopramide 10 MG/2 ML SDV IVPUSH PRN (14:50)
[2022-06-26] MEDS ORDERED: Cyclobenzaprine 5 MG Tab PO PRN (15:35)
[2022-06-26] MEDS: Acetaminophen/oxyCODONE 325-5 MG Tab PO PRN (15:42)
[2022-06-27] MEDS: Acetaminophen/oxyCODONE 325-5 MG Tab PO PRN ×2 (04:10→09:58)
[2022-06-27 08:06] LABS: CARBON DIOXIDE,CO2 27.6 mmol/L (21.0-32.0); POTASSIUM,K 3.3 mmol/L (3.5-5.1)
[2022-06-27] MEDS: Fluticasone/Salmeterol 250-50 MCG Inhalation Powder 14/Diskus INH SCH (09:59)
[2022-06-27] MEDS: Pantoprazole 40 MG in Sodium Chloride 0.9% 10 ML IVPUSH SCH (10:00)
[2022-06-30] MEDS ORDERED: Scopolamine 1.5 MG Transdermal Patch TOP ONE (10:04)
[2022-06-30] MEDS ORDERED: Pantoprazole 40 MG in Sodium Chloride 0.9% 10 ML IVPUSH ONE (10:04)
== END 2022-06-27 11:07 | disposition home or self-care (01) ==
LOC: MW.ED 22:44 → MW.MS 06-25 02:24
PROVIDERS: ADMIT Surgery; ATTEND Surgery
DX: K81.2 Acute cholecystitis with chronic cholecystitis (principal); D72.829 Elevated white blood cell count, unspecified; Z88.5 Allergy status to narcotic agent; Z88.8 Allergy status to other drugs, medicaments and biological substances; Z79.899 Other long term (current) drug therapy; J45.909 Unspecified asthma, uncomplicated; Z20.822 Contact with and (suspected) exposure to COVID-19
CPT/HCPCS: 36415; 47562; 71045; 74177; 74181; 76705; 80053; 81001; 82947; 83036; 83605; 83690; 83735; 84484; 85025; 85027; 87015; 87070; 87075; 87205; 87635; 93005; 96361; 96365; 96366; 96372; 96375; 96376; 99285; A9270; C9113; G0378; J1100; J1630; J1885; J2250; J2270; J2405; J2543; J2704; J2765; J3010; J3490; J7030; Q9967; 00790; 93010; 96374; 99204; 99284; U0002

== ENCOUNTER 2022-06-29 11:41 | Observation (INO) | payer MEDICAID ==
[2022-06-29] MEDS ORDERED: Sodium Chloride 0.9% 10 ML Syringe FLUSH PRN (12:33)
[2022-06-29] MEDS ORDERED: Sodium Chloride 0.9% 2.5 ML Syringe FLUSH PRN (12:33)
[2022-06-29 13:05] LABS: CARBON DIOXIDE,CO2 30.5 mmol/L (21.0-32.0); POTASSIUM,K 3.5 mmol/L (3.5-5.1)
[2022-06-29] MEDS ORDERED: HYDROmorphone 1 MG/ML Syringe IVPUSH ONE (13:52)
[2022-06-29] MEDS ORDERED: Ondansetron 4 MG/2 ML SDV IVPUSH ONE ×2 (13:52→23:49)
[2022-06-29] MEDS ORDERED: Sodium Chloride 0.9% 1,000 ML IV ONE (13:54)
[2022-06-29 14:03] LABS: CORONAVIRUS COVID-19 NAA NEGATIVE (NEGATIVE); INFLUENZA A NAA NEGATIVE (NEGATIVE); INFLUENZA B NAA NEGATIVE (NEGATIVE)
[2022-06-29] MEDS ORDERED: Iopamidol 755 MG/ML 500 ML Multipack Bottle IVPUSH STA (14:37)
[2022-06-29] MEDS ORDERED: Acetaminophen 325 MG Tab PO PRN (16:46)
[2022-06-29] MEDS: Lactated Ringers 1,000 ML IV SCH (17:19)
[2022-06-29] MEDS: Acetaminophen/oxyCODONE 325-10 MG Tab PO PRN (19:58)
[2022-06-30] MEDS: Lactated Ringers 1,000 ML IV SCH ×2 (00:51→08:44)
[2022-06-30] MEDS ORDERED: Ondansetron 4 MG Tab.DIS PO PRN (04:00)
[2022-06-30] MEDS: Acetaminophen/oxyCODONE 325-10 MG Tab PO PRN (05:37)
[2022-06-30] MEDS ORDERED: Omeprazole 20 MG Cap.CR PO ONE (10:15)
[2022-06-30] MEDS ORDERED: Scopolamine 1.5 MG Transdermal Patch TOP ONE (10:16)
== END 2022-06-30 12:50 | disposition home or self-care (01) ==
LOC: MW.ED 11:41 → MW.MS 16:12
PROVIDERS: ADMIT Surgery; ATTEND Surgery
DX: R50.9 Fever, unspecified (principal); J98.11 Atelectasis; R50.82 Postprocedural fever; R10.11 Right upper quadrant pain; R11.0 Nausea; E66.9 Obesity, unspecified; J45.909 Unspecified asthma, uncomplicated; G89.29 Other chronic pain; M54.2 Cervicalgia; G43.909 Migraine, unspecified, not intractable, without status migrainosus; K76.0 Fatty (change of) liver, not elsewhere classified; Z98.890 Other specified postprocedural states; Z79.51 Long term (current) use of inhaled steroids; Z79.899 Other long term (current) drug therapy; Z79.82 Long term (current) use of aspirin; Z20.822 Contact with and (suspected) exposure to COVID-19
CPT/HCPCS: 0240U; 36415; 71045; 74177; 80053; 81001; 83605; 83690; 85025; 87040; 93005; 96361; 96374; 96375; 96376; 99285; A9270; G0378; J1170; J2405; J3490; J7030; J7120; Q9967; 93010; 99284

== ENCOUNTER 2022-10-02 10:51 | Emergency (ER) | payer MEDICAID ==
[2022-10-02] MEDS ORDERED: Sodium Chloride 0.9% 10 ML Syringe FLUSH PRN (10:54)
[2022-10-02] MEDS ORDERED: Sodium Chloride 0.9% 2.5 ML Syringe FLUSH PRN (10:54)
[2022-10-02] MEDS ORDERED: Sodium Chloride 0.9% 1,000 ML IV ONE (11:22)
[2022-10-02] MEDS ORDERED: Ondansetron 4 MG/2 ML SDV IVPUSH ONE (11:47)
[2022-10-02 11:53] LABS: CORONAVIRUS COVID-19 NAA NEGATIVE (NEGATIVE); INFLUENZA A NAA NEGATIVE (NEGATIVE); INFLUENZA B NAA NEGATIVE (NEGATIVE)
[2022-10-02 12:46] LABS: POTASSIUM,K 3.9 mmol/L (3.5-5.1)
== END 2022-10-02 14:37 | disposition home or self-care (01) ==
LOC: MW.ED 10:51
DX: R42 Dizziness and giddiness (principal); E66.9 Obesity, unspecified; Z68.27 Body mass index [BMI] 27.0-27.9, adult; Z88.5 Allergy status to narcotic agent; Z88.8 Allergy status to other drugs, medicaments and biological substances; Z79.82 Long term (current) use of aspirin; Z20.822 Contact with and (suspected) exposure to COVID-19
CPT/HCPCS: 0240U; 36415; 70450; 71045; 80053; 81001; 83690; 84484; 85025; 93005; 96361; 96374; 99284; J2405; J3490; J7030

== ENCOUNTER 2023-01-03 12:07 | Emergency (ER) | payer MEDICAID ==
[2023-01-03] MEDS ORDERED: Sodium Chloride 0.9% 1,000 ML IV ONE (12:24)
[2023-01-03] MEDS ORDERED: Morphine 4 MG/ML Syringe IVPUSH ONE (12:24)
[2023-01-03] MEDS ORDERED: Ondansetron 4 MG/2 ML SDV IVPUSH ONE ×2 (12:24→14:19)
[2023-01-03] MEDS ORDERED: LORazepam 2 MG/ML SDV IVPUSH ONE (13:14)
[2023-01-03] MEDS ORDERED: Alum Hydro/Mag Hydro/Simeth XS 15 ML, Lidocaine 2% 5 ML PO ONE ×2 (13:15)
[2023-01-03 13:17] LABS: BLOOD UREA NITROGEN,BUN 21 mg/dL (7.0-18.0); CARBON DIOXIDE,CO2 27.3 mmol/L (21.0-32.0); CHLORIDE,CL 104 mmol/L (98-107); GLUCOSE RANDOM 92 mg/dL (74-106); LIPASE 98 U/L (73-393); SODIUM,NA 140 mmol/L (136-145)
[2023-01-03 13:20] LABS: ESTIMATED GFR 101 mL/min (>60)
[2023-01-03] MEDS ORDERED: Iopamidol 755 MG/ML 500 ML Multipack Bottle IVPUSH ONE (13:51)
[2023-01-03 15:18] LABS: CORONAVIRUS COVID-19 NAA NEGATIVE (NEGATIVE); INFLUENZA A NAA NEGATIVE (NEGATIVE); INFLUENZA B NAA NEGATIVE (NEGATIVE)
== END 2023-01-03 15:51 | disposition home or self-care (01) ==
LOC: MW.ED 12:07
DX: K52.9 Noninfective gastroenteritis and colitis, unspecified (principal); J45.909 Unspecified asthma, uncomplicated; E66.9 Obesity, unspecified; Z68.32 Body mass index [BMI] 32.0-32.9, adult; Z90.49 Acquired absence of other specified parts of digestive tract; Z88.8 Allergy status to other drugs, medicaments and biological substances; Z88.6 Allergy status to analgesic agent; Z88.5 Allergy status to narcotic agent; Z79.899 Other long term (current) drug therapy; Z79.82 Long term (current) use of aspirin; Z20.822 Contact with and (suspected) exposure to COVID-19
CPT/HCPCS: 0240U; 36415; 71045; 71275; 74177; 80053; 83605; 83690; 83735; 84484; 85025; 85379; 85610; 85730; 86140; 93005; 96361; 96374; 96375; 96376; 99285; A9270; J2060; J2270; J2405; J7030; Q9967; 93010; 99284

== ENCOUNTER 2023-04-03 21:17 | Emergency (ER) | payer MEDICAID ==
[2023-04-03] MEDS ORDERED: Sodium Chloride 0.9% 10 ML Syringe FLUSH PRN (21:21)
[2023-04-03] MEDS ORDERED: Sodium Chloride 0.9% 2.5 ML Syringe FLUSH PRN (21:21)
[2023-04-03] MEDS ORDERED: Sodium Chloride 0.9% 20 ML SDV IV PRN (21:21)
[2023-04-03] MEDS ORDERED: Sodium Chloride 0.9% 500 ML IV SCH (21:30)
[2023-04-03] MEDS ORDERED: Iopamidol 755 MG/ML 500 ML Multipack Bottle IVPUSH ONE (21:38)
[2023-04-03 22:05] LABS: INR 0.99 (0.86-1.11)
[2023-04-03] MEDS ORDERED: droPERidol 5 MG/2 ML SDV IVPUSH ONE (22:05)
[2023-04-03 22:18] LABS: A/G RATIO 1.1 (0.9-1.6); ALANINE AMINOTRANSFERASE,ALT 31 IU/L (14-63); ALBUMIN 3.6 g/dL (3.4-5.0); ALKALINE PHOSPHATASE 112 U/L (46-116); ASPARTATE AMNIOTRANSFERASE,AST 23 IU/L (15-37); BILIRUBIN TOTAL 0.3 mg/dL (0.2-1.0); BLOOD UREA NITROGEN,BUN 21 mg/dL (7.0-18.0); CALCIUM 9.2 mg/dL (8.5-10.1); CARBON DIOXIDE,CO2 27.2 mmol/L (21.0-32.0); CHLORIDE,CL 106 mmol/L (98-107); CREATININE 1.1 mg/dL (0.6-1.0); GLUCOSE RANDOM 123 mg/dL (74-106); LIPASE 98 U/L (73-393); POTASSIUM,K 3.7 mmol/L (3.5-5.1); PROTEIN TOTAL,TP 6.9 g/dL (6.4-8.2); SODIUM,NA 143 mmol/L (136-145)
[2023-04-03 22:19] LABS: ESTIMATED GFR 58 mL/min (>60); ETHANOL BLOOD MEDICAL < 3.0 mg/dL
== END 2023-04-04 00:15 | disposition home or self-care (01) ==
LOC: MW.ED 21:17
DX: E86.0 Dehydration (principal); K52.9 Noninfective gastroenteritis and colitis, unspecified; B34.9 Viral infection, unspecified; J45.909 Unspecified asthma, uncomplicated; E66.9 Obesity, unspecified; Z88.8 Allergy status to other drugs, medicaments and biological substances; Z88.5 Allergy status to narcotic agent; Z79.899 Other long term (current) drug therapy
CPT/HCPCS: 36415; 70450; 74177; 80053; 80307; 83690; 84484; 85610; 85730; 93005; 96374; 99284; J1790; J3490; J7040; Q9967

== ENCOUNTER 2023-07-23 15:27 | Emergency (ER) | payer MEDICAID ==
[2023-07-23] MEDS ORDERED: Sodium Chloride 0.9% 2.5 ML Syringe FLUSH PRN (16:47)
[2023-07-23 17:04] LABS: APPEARANCE,URINE CLEAR; BILIRUBIN,URINE NEGATIVE (NEGATIVE); COLOR,URINE YELLOW; GLUCOSE,URINE NEGATIVE (NEGATIVE); KETONES,URINE TRACE mg/dL (NEGATIVE); LEUKOCYTE ESTERASE,URINE NEGATIVE (NEGATIVE); NITRITE,URINE NEGATIVE (NEGATIVE); OCCULT BLOOD,URINE TRACE-INTACT (NEGATIVE); PH,URINE 7.5 (5.0-8.0); PROTEIN,URINE NEGATIVE (NEGATIVE); UROBILINOGEN,URINE 0.2 EU/dL (<2.0)
[2023-07-23 17:16] LABS: BACTERIA,URINE RARE (NEGATIVE); EPITHELIAL CELLS,URINE MODERATE (NONE-FEW); RBC,URINE 0-1 (0-2/HPF)
[2023-07-23] MEDS: Sodium Chloride 0.9% 10 ML Syringe FLUSH PRN ×2 (17:36→19:39)
[2023-07-23 18:24] LABS: CORONAVIRUS COVID-19 NAA NEGATIVE (NEGATIVE); INFLUENZA A NAA NEGATIVE (NEGATIVE); INFLUENZA B NAA NEGATIVE (NEGATIVE); RESPIRATORY SYNCYTIAL VIR NAA NEGATIVE (NEGATIVE)
[2023-07-23] MEDS ORDERED: Morphine 4 MG/ML Syringe IVPUSH ONE (19:22)
[2023-07-23] MEDS ORDERED: Lactated Ringers 1,000 ML IV SCH (19:30)
[2023-07-23] MEDS ORDERED: Acetaminophen 325 MG/10.15 ML ML PO ONE (19:48)
[2023-07-23 19:50] LABS: BASOPHILS PERCENT AUTO 0.2 % (0.0-1.5); EOSINOPHILS ABSOLUTE AUTO 0.3 K/uL (0.0-0.7); EOSINOPHILS PERCENT AUTO 2.3 % (0.0-7.0); HEMATOCRIT 37.4 % (36.0-46.0); HEMOGLOBIN 12.3 g/dL (12.0-16.0); LYMPHOCYTES ABSOLUTE AUTO 2.3 K/uL (0.6-2.4); LYMPHOCYTES PERCENT AUTO 16.9 % (16.0-40.0); MEAN CORPUSCULAR HEMOGLOBIN 30.9 pg (27.0-32.0); MEAN CORPUSCULAR HGB CONC 32.9 g/dL (31.0-37.0); MONOCYTES PERCENT AUTO 7.2 % (0.0-15.0); NEUTROPHILS ABSOLUTE AUTO 9.9 K/uL (1.4-5.7); NEUTROPHILS PERCENT AUTO 73.4 % (48.0-80.0); NRBC ABSOLUTE 0 K/uL; PLATELET COUNT,PLT 260 K/uL (150-400); RED BLOOD CELL COUNT 3.98 M/uL (4.30-5.90); WHITE BLOOD CELL COUNT,WBC 13.46 K/uL (4.0-11.0)
[2023-07-23 20:10] LABS: ALBUMIN 3.4 g/dL (3.4-5.0); BILIRUBIN TOTAL 0.4 mg/dL (0.2-1.0); CALCIUM 8.9 mg/dL (8.5-10.1); CARBON DIOXIDE,CO2 28.1 mmol/L (21.0-32.0); CREATININE 0.7 mg/dL (0.6-1.0); EST CRCL DRUG DOSING (CG) 62.92 mL/min; POTASSIUM,K 3.9 mmol/L (3.5-5.1); PROTEIN TOTAL,TP 6.8 g/dL (6.4-8.2)
[2023-07-23] MEDS ORDERED: Doxycycline 100 MG Cap PO SCH (21:00)
== END 2023-07-23 21:13 | disposition home or self-care (01) ==
LOC: MW.ED 15:27
DX: R50.9 Fever, unspecified (principal); J45.909 Unspecified asthma, uncomplicated; E66.9 Obesity, unspecified; Z68.34 Body mass index [BMI] 34.0-34.9, adult; Z88.8 Allergy status to other drugs, medicaments and biological substances; Z79.82 Long term (current) use of aspirin; Z20.822 Contact with and (suspected) exposure to COVID-19
CPT/HCPCS: 0241U; 36415; 71045; 80053; 81001; 83605; 85025; 87040; 87651; 96361; 96374; 99283; A9270; J2270; J3490; J7120; 99284

== ENCOUNTER 2024-01-22 14:09 | Emergency (ER) | payer MEDICAID ==
[2024-01-22] MEDS: Sodium Chloride 0.9% 2.5 ML Syringe FLUSH PRN (16:00)
[2024-01-22] MEDS: Sodium Chloride 0.9% 10 ML Syringe FLUSH PRN (16:01)
[2024-01-22] MEDS: Sodium Chloride 0.9% 1,000 ML IV STA (16:01)
[2024-01-22 16:39] LABS: BASOPHILS ABSOLUTE AUTO 0.05 K/uL (0.00-0.20); BASOPHILS PERCENT AUTO 0.9 % (0.0-1.0); EOSINOPHILS ABSOLUTE AUTO 0.34 K/uL (0.00-0.45); EOSINOPHILS PERCENT AUTO 6.2 % (0.0-6.0); HEMATOCRIT 37.8 % (37.0-47.0); HEMOGLOBIN 12.7 g/dL (12.0-16.0); IMMATURE GRAN ABSOLUTE AUTO 0.02 K/uL (0.00-0.05); IMMATURE GRAN PERCENT AUTO 0.4 % (0.0-0.4); LYMPHOCYTES ABSOLUTE AUTO 1.95 K/uL (1.00-4.80); LYMPHOCYTES PERCENT AUTO 35.6 % (24.0-44.0); MEAN CORPUSCULAR HEMOGLOBIN 31.2 pg (28.0-32.0); MEAN CORPUSCULAR HGB CONC 33.6 g/dL (32.0-36.0); MEAN CORPUSCULAR VOLUME 92.9 fL (83.0-99.0); MEAN PLATELET VOLUME 10.4 fL (9.4-12.3); MONOCYTES PERCENT AUTO 9.1 % (0.0-8.0); NEUTROPHILS ABSOLUTE AUTO 2.62 K/uL (1.80-7.70); NEUTROPHILS PERCENT AUTO 47.8 % (41.0-71.0); PLATELET COUNT,PLT 253 K/uL (150-400); RED BLOOD CELL COUNT 4.07 M/uL (4.10-5.30); WHITE BLOOD CELL COUNT,WBC 5.48 K/uL (3.9-11.3)
[2024-01-22 16:54] LABS: D-DIMER QUANTITATIVE 0.58 mg/L FEU (0.00-0.50); INR 0.96 (0.86-1.11); PTT,PARTIAL THROMBOPLSTIN TIME 28.8 SEC (23.9-30.7)
[2024-01-22 17:30] LABS: A/G RATIO 1.1 (0.9-1.6); ALBUMIN 3.7 g/dL (3.4-5.0); BILIRUBIN TOTAL 0.3 mg/dL (0.2-1.0); CALCIUM 9.1 mg/dL (8.5-10.1); CARBON DIOXIDE,CO2 25.5 mmol/L (21.0-32.0); CREATININE 0.6 mg/dL (0.6-1.0); EST CRCL DRUG DOSING (CG) 73.41 mL/min; POTASSIUM,K 4.4 mmol/L (3.5-5.1)
[2024-01-22] MEDS: Iopamidol 755 MG/ML 500 ML Multipack Bottle IVPUSH ONE (18:23)
[2024-01-22] MEDS: Ketorolac 10 MG Tab PO STA (20:22)
[2024-01-22] MEDS: Benzonatate 100 MG Cap PO STA (20:22)
== END 2024-01-22 20:38 | disposition home or self-care (01) ==
LOC: MW.ED 14:09
DX: J40 Bronchitis, not specified as acute or chronic (principal); M94.0 Chondrocostal junction syndrome [Tietze]; R79.89 Other specified abnormal findings of blood chemistry; Z79.51 Long term (current) use of inhaled steroids; Z88.8 Allergy status to other drugs, medicaments and biological substances; Z75.8 Other problems related to medical facilities and other health care; Z88.6 Allergy status to analgesic agent; Z79.82 Long term (current) use of aspirin; Z79.899 Other long term (current) drug therapy
CPT/HCPCS: 36415; 71046; 71275; 80053; 83690; 84484; 85025; 85379; 85610; 85730; 93005; 99285; A9270; J3490; Q9967; 36410; 93010; 99284; J7030

== ENCOUNTER 2024-05-01 17:06 | Emergency (ER) | payer MEDICAID ==
[2024-05-01 18:28] LABS: BASOPHILS ABSOLUTE AUTO 0.08 K/uL (0.00-0.20); EOSINOPHILS ABSOLUTE AUTO 0.58 K/uL (0.00-0.45); EOSINOPHILS PERCENT AUTO 7.5 % (0.0-6.0); HEMATOCRIT 36.7 % (37.0-47.0); HEMOGLOBIN 12.6 g/dL (12.0-16.0); IMMATURE GRAN ABSOLUTE AUTO 0.04 K/uL (0.00-0.05); IMMATURE GRAN PERCENT AUTO 0.5 % (0.0-0.4); LYMPHOCYTES ABSOLUTE AUTO 2.17 K/uL (1.00-4.80); MEAN CORPUSCULAR HEMOGLOBIN 31.7 pg (28.0-32.0); MEAN CORPUSCULAR HGB CONC 34.3 g/dL (32.0-36.0); MEAN CORPUSCULAR VOLUME 92.4 fL (83.0-99.0); MEAN PLATELET VOLUME 10.9 fL (9.4-12.3); MONOCYTES ABSOLUTE AUTO 0.64 K/uL (0.00-0.80); MONOCYTES PERCENT AUTO 8.2 % (0.0-8.0); NEUTROPHILS ABSOLUTE AUTO 4.25 K/uL (1.80-7.70); NEUTROPHILS PERCENT AUTO 54.8 % (41.0-71.0); PLATELET COUNT,PLT 259 K/uL (150-400); RED BLOOD CELL COUNT 3.97 M/uL (4.10-5.30); WHITE BLOOD CELL COUNT,WBC 7.76 K/uL (3.9-11.3)
[2024-05-01 18:59] LABS: ALBUMIN 3.3 g/dL (3.4-5.0); BILIRUBIN TOTAL 0.2 mg/dL (0.2-1.0); CALCIUM 8.7 mg/dL (8.5-10.1); CARBON DIOXIDE,CO2 27.6 mmol/L (21.0-32.0); CREATININE 0.7 mg/dL (0.6-1.0); EST CRCL DRUG DOSING (CG) 62.16 mL/min; MAGNESIUM 2.1 mg/dL (1.8-2.4); POTASSIUM,K 3.8 mmol/L (3.5-5.1); PROTEIN TOTAL,TP 6.7 g/dL (6.4-8.2)
[2024-05-01] MEDS: Calcium Carbonate 500 MG Tab.Chew PO ONE (19:50)
== END 2024-05-01 19:54 | disposition home or self-care (01) ==
LOC: MW.ED 17:06
DX: E83.51 Hypocalcemia (principal); J45.909 Unspecified asthma, uncomplicated; E66.9 Obesity, unspecified; Z79.899 Other long term (current) drug therapy; Z88.6 Allergy status to analgesic agent; Z75.8 Other problems related to medical facilities and other health care; Z88.8 Allergy status to other drugs, medicaments and biological substances; Z68.34 Body mass index [BMI] 34.0-34.9, adult
CPT/HCPCS: 36415; 80053; 82330; 83735; 84484; 85025; 93005; 99284; A9270; 93010; 99283

== ENCOUNTER 2025-03-27 07:54 | Emergency (ER) | payer MEDICAID ==
[2025-03-27] MEDS: Sodium Chloride 0.9% 1,000 ML IV ONE (08:17)
[2025-03-27 08:50] LABS: INR 0.95 (0.86-1.11)
[2025-03-27 09:09] LABS: A/G RATIO 1.1 (0.9-1.6); ALBUMIN 3.3 g/dL (3.4-5.0); BILIRUBIN TOTAL 0.5 mg/dL (0.2-1.0); CALCIUM 8.2 mg/dL (8.5-10.1); CARBON DIOXIDE,CO2 27.5 mmol/L (21.0-32.0); CREATININE 0.7 mg/dL (0.6-1.0); EST CRCL DRUG DOSING (CG) 62.16 mL/min; MAGNESIUM 2.1 mg/dL (1.8-2.4); POTASSIUM,K 3.4 mmol/L (3.5-5.1); PROTEIN TOTAL,TP 6.4 g/dL (6.4-8.2); TSH ULTRASENSITIVE 0.15 uIU/mL (0.36-3.74)
[2025-03-27 09:10] LABS: BASOPHILS ABSOLUTE AUTO 0.06 K/uL (0.00-0.20); BASOPHILS PERCENT AUTO 0.7 % (0.0-1.0); EOSINOPHILS ABSOLUTE AUTO 0.16 K/uL (0.00-0.45); EOSINOPHILS PERCENT AUTO 1.9 % (0.0-6.0); HEMATOCRIT 37.5 % (37.0-47.0); HEMOGLOBIN 12.5 g/dL (12.0-16.0); IMMATURE GRAN ABSOLUTE AUTO 0.06 K/uL (0.00-0.05); IMMATURE GRAN PERCENT AUTO 0.7 % (0.0-0.4); LYMPHOCYTES ABSOLUTE AUTO 4.47 K/uL (1.00-4.80); LYMPHOCYTES PERCENT AUTO 52.3 % (24.0-44.0); MEAN CORPUSCULAR HEMOGLOBIN 30.6 pg (28.0-32.0); MEAN CORPUSCULAR HGB CONC 33.3 g/dL (32.0-36.0); MEAN CORPUSCULAR VOLUME 91.7 fL (83.0-99.0); MEAN PLATELET VOLUME 10.1 fL (9.4-12.3); MONOCYTES PERCENT AUTO 5.8 % (0.0-8.0); NEUTROPHILS PERCENT AUTO 38.6 % (41.0-71.0); PLATELET COUNT,PLT 251 K/uL (150-400); RED BLOOD CELL COUNT 4.09 M/uL (4.10-5.30); WHITE BLOOD CELL COUNT,WBC 8.55 K/uL (3.9-11.3)
== END 2025-03-27 10:51 | disposition home or self-care (01) ==
LOC: MW.ED 07:54
DX: R07.2 Precordial pain (principal); J45.909 Unspecified asthma, uncomplicated; Z88.5 Allergy status to narcotic agent; Z79.899 Other long term (current) drug therapy; Z79.51 Long term (current) use of inhaled steroids; Z79.890 Hormone replacement therapy
CPT/HCPCS: 36415; 71045; 80053; 83735; 83880; 84443; 84484; 85025; 85610; 93005; 96360; 96361; 99285; J7030; 93010; 99283

== ENCOUNTER 2025-05-11 09:21 | Emergency (ER) | payer MEDICAID ==
[2025-05-11] MEDS ORDERED: Sodium Chloride 0.9% 10 ML Syringe FLUSH PRN (09:44)
[2025-05-11] MEDS ORDERED: Sodium Chloride 0.9% 2.5 ML Syringe FLUSH PRN (09:44)
[2025-05-11] MEDS ORDERED: Sodium Chloride 0.9% 20 ML SDV IV PRN (09:44)
[2025-05-11 10:09] LABS: BASOPHILS ABSOLUTE AUTO 0.06 K/uL (0.00-0.20); BASOPHILS PERCENT AUTO 1.2 % (0.0-1.0); EOSINOPHILS ABSOLUTE AUTO 0.28 K/uL (0.00-0.45); EOSINOPHILS PERCENT AUTO 5.4 % (0.0-6.0); HEMOGLOBIN 11.8 g/dL (12.0-16.0); IMMATURE GRAN ABSOLUTE AUTO 0.01 K/uL (0.00-0.05); IMMATURE GRAN PERCENT AUTO 0.2 % (0.0-0.4); LYMPHOCYTES ABSOLUTE AUTO 1.61 K/uL (1.00-4.80); LYMPHOCYTES PERCENT AUTO 30.9 % (24.0-44.0); MEAN CORPUSCULAR HEMOGLOBIN 31.2 pg (28.0-32.0); MEAN CORPUSCULAR HGB CONC 33.7 g/dL (32.0-36.0); MEAN CORPUSCULAR VOLUME 92.6 fL (83.0-99.0); MEAN PLATELET VOLUME 10.6 fL (9.4-12.3); MONOCYTES ABSOLUTE AUTO 0.45 K/uL (0.00-0.80); MONOCYTES PERCENT AUTO 8.6 % (0.0-8.0); NEUTROPHILS PERCENT AUTO 53.7 % (41.0-71.0); PLATELET COUNT,PLT 225 K/uL (150-400); RED BLOOD CELL COUNT 3.78 M/uL (4.10-5.30); WHITE BLOOD CELL COUNT,WBC 5.21 K/uL (3.9-11.3)
[2025-05-11] MEDS: Diphtheria,Pertussis(Acell),Tetanus Vaccine 0.5 ML Syringe IM ONE (10:20)
[2025-05-11 10:25] LABS: INR 1.01 (0.86-1.11); PTT,PARTIAL THROMBOPLSTIN TIME 27.1 SEC (23.9-30.7)
[2025-05-11 10:37] LABS: A/G RATIO 1.2 (0.9-1.6); ALANINE AMINOTRANSFERASE,ALT 29 IU/L (14-63); ALBUMIN 3.5 g/dL (3.4-5.0); ALKALINE PHOSPHATASE 94 U/L (46-116); ASPARTATE AMNIOTRANSFERASE,AST 27 IU/L (15-37); BILIRUBIN TOTAL 0.6 mg/dL (0.2-1.0); BLOOD UREA NITROGEN,BUN 16 mg/dL (7.0-18.0); CALCIUM 8.4 mg/dL (8.5-10.1); CARBON DIOXIDE,CO2 26.3 mmol/L (21.0-32.0); CHLORIDE,CL 107 mmol/L (98-107); CREATININE 0.6 mg/dL (0.6-1.0); GLUCOSE RANDOM 87 mg/dL (74-106); PROTEIN TOTAL,TP 6.3 g/dL (6.4-8.2); SODIUM,NA 142 mmol/L (136-145)
[2025-05-11 10:44] LABS: ESTIMATED GFR 103 mL/min (>60)
[2025-05-11] MEDS ORDERED: Acetaminophen 500 MG Tab PO ONE (12:51)
== END 2025-05-11 12:58 | disposition home or self-care (01) ==
LOC: MW.ED 09:21
DX: S40.011A Contusion of right shoulder, initial encounter (principal); S80.02XA Contusion of left knee, initial encounter; S80.01XA Contusion of right knee, initial encounter; S40.021A Contusion of right upper arm, initial encounter; Z88.5 Allergy status to narcotic agent; Z88.6 Allergy status to analgesic agent; Z88.8 Allergy status to other drugs, medicaments and biological substances; Z79.51 Long term (current) use of inhaled steroids; W18.39XA Other fall on same level, initial encounter; Y93.89 Activity, other specified; Z79.899 Other long term (current) drug therapy
CPT/HCPCS: 36415; 70450; 70450-26; 71045; 71045-26; 72125; 72125-26; 73060-26-RT; 73060-RT; 73090-RT; 73120-26-RT; 73120-RT; 735622650; 73562-50; 80053; 82550; 85025; 85610; 85730; 90471; 90715; 99284; 99284-25

== ENCOUNTER 2025-05-13 04:25 | Emergency (ER) | payer MEDICAID ==
[2025-05-13] MEDS: traMADol 50 MG Tab PO ONE (05:41)
== END 2025-05-13 06:15 | disposition home or self-care (01) ==
LOC: MW.ED 04:25
DX: S80.01XA Contusion of right knee, initial encounter (principal); S40.012A Contusion of left shoulder, initial encounter; E66.9 Obesity, unspecified; Z75.3 Unavailability and inaccessibility of health-care facilities; Z88.8 Allergy status to other drugs, medicaments and biological substances; Z79.890 Hormone replacement therapy; Z79.899 Other long term (current) drug therapy; Z68.30 Body mass index [BMI] 30.0-30.9, adult; W19.XXXA Unspecified fall, initial encounter
CPT/HCPCS: 99283; A9270

== ENCOUNTER 2025-05-17 09:13 | Emergency (ER) | payer MEDICAID | END 2025-05-17 11:02 | disposition home or self-care (01) | LOC: MW.ED 09:13 | DX: S89.92XA Unspecified injury of left lower leg, initial encounter (principal); J45.909 Unspecified asthma, uncomplicated; Z75.3 Unavailability and inaccessibility of health-care facilities; Z88.8 Allergy status to other drugs, medicaments and biological substances; Z88.5 Allergy status to narcotic agent; Z79.899 Other long term (current) drug therapy; Z79.51 Long term (current) use of inhaled steroids; W18.39XA Other fall on same level, initial encounter; Y93.89 Activity, other specified | CPT/HCPCS: 73562-26-LT; 73562-LT; 99283 ==

== ENCOUNTER 2025-07-27 18:23 | Emergency (ER) | payer MEDICAID | END 2025-07-27 19:48 | disposition home or self-care (01) | LOC: MW.ED 18:23 | DX: T78.1XXA Other adverse food reactions, not elsewhere classified, initial encounter (principal); J45.909 Unspecified asthma, uncomplicated; E03.9 Hypothyroidism, unspecified; Z88.5 Allergy status to narcotic agent; Z88.6 Allergy status to analgesic agent; Z79.890 Hormone replacement therapy; Z79.899 Other long term (current) drug therapy | CPT/HCPCS: 99283; 99284 ==